=== PATIENT | female | born 1990 | race Caucasian/White ===

== ENCOUNTER 2017-05-12 17:54 | Emergency (ER) | payer OTHER ==
--- NOTE | 2017-05-12 19:50 | ER Document Report ---
ED Medical Screen (RME) - General Chief Complaint: Rectal Bleeding Stated Complaint: NAUSEA Time Seen by Provider: 05/12/17 19:49 Notes: Patient complains of increased anxiety, irregular periods, rectal bleeding, chest pain and chest pressure. - Related Data Allergies/Adverse Reactions: doxycycline Allergy (Verified 05/12/17 17:57) Physical Exam - Vital signs Vitals: Temp Pulse Resp BP Pulse Ox 98.5 F 101 H 16 144/88 H 99 05/12/17 18:20 05/12/17 18:20 05/12/17 18:20 05/12/17 18:20 05/12/17 18:20 Course - Vital Signs Vital signs: Temp Pulse Resp BP Pulse Ox 98.5 F 101 H 16 144/88 H 99 05/12/17 18:20 05/12/17 18:20 05/12/17 18:20 05/12/17 18:20 05/12/17 18:20
[2017-05-12 20:58] LABS: ABSOLUTE EOSINOPHILS # (AUTO) 0.3 10^3/uL (0.0-0.6); ABSOLUTE LYMPHOCYTES (AUTO) 2.3 10^3/uL (0.5-4.7); ABSOLUTE MONOCYTES (AUTO) 0.5 10^3/uL (0.1-1.4); ABSOLUTE NEUT (AUTO) 4.9 10^3/uL (1.7-8.2); BASOPHILS % (AUTO) 0.4 % (0-2); HEMATOCRIT 42.1 % (36.0-47.0); HEMOGLOBIN 14.2 g/dL (12.0-15.5); LYMPHOCYTES % (AUTO) 28.5 % (13-45); MEAN CORPUSCULAR HEMOGLOBIN 30.6 pg (27.0-33.4); MEAN CORPUSCULAR HGB CONC 33.7 g/dL (32.0-36.0); MEAN CORPUSCULAR VOLUME 91 fl (80-97); MONOCYTES % (AUTO) 5.9 % (3-13); PLATELET COUNT 222 10^3/uL (150-450); RED BLOOD COUNT 4.63 10^6/uL (3.72-5.28); RED CELL DISTRIBUTION WIDTH 12.1 % (11.5-14.0); SEGMENTED NEUTROPHILS % (AUTO) 61.2 % (42-78); TOTAL CELLS COUNTED % (AUTO) 100 %
[2017-05-12 21:08] LABS: APPEARANCE,URINE CLEAR; BILIRUBIN,URINE NEGATIVE (NEGATIVE); COLOR,URINE YELLOW; GLUCOSE, URINE NEGATIVE (NEGATIVE); KETONES,URINE NEGATIVE (NEGATIVE); LEUKOCYTE ESTERASE,URINE MODERATE (NEGATIVE); NITRITE,URINE NEGATIVE (NEGATIVE); PROTEIN,URINE NEGATIVE (NEGATIVE); URINE SPECIFIC GRAVITY 1.023; UROBILINOGEN,URINE NEGATIVE mg/dL (<2.0)
[2017-05-12 21:16] LABS: ALANINE AMINOTRANSFERASE 25 U/L (9-52); ALBUMIN 4.9 g/dL (3.5-5.0); ALKALINE PHOSPHATASE 80 U/L (38-126); ANION GAP 11 (5-19); ASPARTATE AMINO TRANSFERASE 18 U/L (14-36); BILIRUBIN,DIRECT 0.1 mg/dL (0.0-0.4); BILIRUBIN,TOTAL 0.3 mg/dL (0.2-1.3); BLOOD UREA NITROGEN 16 mg/dL (7-20); CALCIUM 10.3 mg/dL (8.4-10.2); CARBON DIOXIDE 27 mmol/L (22-30); CHLORIDE 104 mmol/L (98-107); GLUCOSE 72 mg/dL (75-110); POTASSIUM 4.3 mmol/L (3.6-5.0); SODIUM 141.8 mmol/L (137-145); TOTAL PROTEIN 7.4 g/dL (6.3-8.2)
[2017-05-12] MEDS ORDERED: ONDANSETRON 4 MG TAB.RAPDIS PO ONE (21:38)
[2017-05-12] MEDS ORDERED: HALOPERIDOL 5 MG TABLET PO ONE (22:11)
[2017-05-12 22:13] VITALS: BP 136/97
[2017-05-12] MEDS ORDERED: CEPHALEXIN 500 MG CAPSULE PO ONE (22:38)
--- NOTE | 2017-05-12 22:41 | ER Document Report ---
ED General - General Chief Complaint: Rectal Bleeding Stated Complaint: NAUSEA Time Seen by Provider: 05/12/17 19:49 Notes: Patient is a 26 year old female with a past medical history of anxiety who presents with 4 days multiple symptoms. Patient reports that she has felt tremulousness, headache, intermittent shortness of breath, intermittent chest pain, concerns of possible rectal bleeding with bowel movements, vaginal bleeding, ear pain, and insomnia. Patient reports that the symptoms have been continuous over that period of time. She states that she saw her primary doctor , was started on Xanax and Lexapro but reports that these have had minimal improvement in her symptoms. She reports that she used to have long-standing severe anxiety in the past but that she had been doing well until the past several days. She does note that she is currently going through a marital separation but describes this as "a good thing and not at all stressful". She denies any history of chronic medical problems, history of DVT or pulmonary embolus, or use of any medications other than Xanax and Lexapro. She has not noted that anything seems to worsen or trigger her symptoms. She states this does feel similar to when she had severe anxiety in the past. - Related Data Allergies/Adverse Reactions: doxycycline Allergy (Verified 05/12/17 17:57) Past Medical History - General Information source: Patient - Social History Smoking Status: Current Every Day Smoker Chew tobacco use (# tins/day): No Frequency of alcohol use: Occasional Drug Abuse: None Lives with: Family Family History: Reviewed & Not Pertinent Patient has suicidal ideation: No Patient has homicidal ideation: No Renal/ Medical History: Denies: Hx Peritoneal Dialysis Review of Systems - Review of Systems Notes: Constitutional: Negative for fever. HENT: Negative for sore throat. Eyes: Negative for visual changes. Cardiovascular: Positive for chest pain. Respiratory: Positive for shortness of breath. Gastrointestinal: Negative for abdominal pain, vomiting or diarrhea. Positive for intermittent rectal bleeding bowel movements. Genitourinary: Negative for dysuria. Musculoskeletal: Negative for back pain. Skin: Negative for rash. Neurological: Positive for intermittent headaches 10 point ROS negative except as marked above and in HPI. Physical Exam - Vital signs Vitals: Temp Pulse Resp BP Pulse Ox 98.5 F 101 H 16 144/88 H 99 05/12/17 18:20 05/12/17 18:20 05/12/17 18:20 05/12/17 18:20 05/12/17 18:20 Interpretation: Tachycardic Notes: PHYSICAL EXAMINATION: GENERAL: Well-appearing, well-nourished and in no acute distress. HEAD: Atraumatic, normocephalic. EYES: Pupils equal round and reactive to light, extraocular movements intact, sclera anicteric, conjunctiva are normal. ENT: nares patent, oropharynx clear without exudates. Moist mucous membranes. NECK: Normal range of motion, supple without lymphadenopathy LUNGS: Breath sounds clear to auscultation bilaterally and equal. No wheezes rales or rhonchi. HEART: Regular rate and rhythm without murmurs ABDOMEN: Soft, nontender, normoactive bowel sounds. No guarding, no rebound. No masses appreciated. EXTREMITIES: Normal range of motion, no pitting or edema. No cyanosis. NEUROLOGICAL: No focal neurological deficits. Moves all extremities spontaneously and on command. PSYCH: Anxious SKIN: Warm, Dry, normal turgor, no rashes or lesions noted. Course - Re-evaluation Re-evalutation: 05/12/17 22:39 Patient presents with multiple vague complaints that did not appear to be concerning for any acute life-threatening pathology. Vitals are within normal limits at triage and at time of discharge. Physical examination is unremarkable. Patient has tolerated oral intake without difficulty. Patient was not noted to be in distress at any point during their ER visit. At this time, based on the reassuring evaluation, I do not suspect an acute AL, pulmonary embolus, aortic dissection, acute intra-abdominal pathology, stroke, or sepsis. Urinalysis is consistent with a mild urinary tract infection. Patient does admit to some mild dysuria. A urine culture has been sent and she will be discharged on a short course of cephalexin. Discharge with return precautions and follow-up recommendations. Verbal discharge instructions given a the bedside and opportunity for questions given. Medication warnings reviewed. Patient is in agreement with this plan and has verbalized understanding of return precautions and the need for primary care follow-up in the next 24-72 hours. - Vital Signs Vital signs: Temp Pulse Resp BP Pulse Ox 98.6 F 76 14 136/97 H 100 05/12/17 22:02 05/12/17 22:02 05/12/17 22:02 05/12/17 22:02 05/12/17 22:02 - Laboratory Result Diagrams: 05/12/17 20:39 05/12/17 20:39 Laboratory results interpreted by me: 05/12/17 05/12/17 20:39 20:39 Glucose 72 L Calcium 10.3 H Urine Blood SMALL H Ur Leukocyte Esterase MODERATE H Discharge - Discharge Clinical Impression: Chronic anxiety Urinary tract infection Qualifiers: Urinary tract infection type: acute cystitis Hematuria presence: without hematuria Qualified Code(s): N30.00 - Acute cystitis without hematuria Condition: Good Disposition: HOME, SELF-CARE Additional Instructions: Please return if you have thoughts of wanting to hurt yourself, hurt others, or have any other symptoms that are concerning to you. Continue taking Lexapro as prescribed. Your urine shows findings consistent with a urinary tract infection. Please take all the antibiotics as directed even if your symptoms have improved. Please follow-up with your primary care physician as needed. Return to emergency room if you develop fever >101F, persistent vomiting, become lethargic , have severe pain in your sides, or any other symptoms that are concerning to you. Prescriptions: Cephalexin Monohydrate [Keflex 500 mg Capsule] 500 mg PO Q6H 3 Days capsule Forms: Return to Work Referrals: MARCIA NEWMAN NP-C [Primary Care Provider] - Follow up as needed
== END 2017-05-12 22:49 | disposition home or self-care (01) ==
LOC: ER 17:54
DX: N30.00 Acute cystitis without hematuria (principal); F41.9 Anxiety disorder, unspecified; K62.5 Hemorrhage of anus and rectum; R51 Headache; R06.02 Shortness of breath; R07.9 Chest pain, unspecified; N93.9 Abnormal uterine and vaginal bleeding, unspecified; H92.09 Otalgia, unspecified ear; G47.00 Insomnia, unspecified; Z79.899 Other long term (current) drug therapy; F17.200 Nicotine dependence, unspecified, uncomplicated
CPT/HCPCS: 36415; 80053; 81001; 81025; 85025; 87086; 87088; 87186; 99283